=== PATIENT | female | born 1960 | race Caucasian/White ===

== ENCOUNTER 2016-09-25 15:08 | Emergency (ER) | payer OTHER ==
[~2016-09-25] VITALS: Ht 172.7 cm; Wt 80.0 kg
[~2016-09-25 15:08] MED LIST: ALPR0.5T99 PO; HYDR-3533 PO; MONT10TA2 PO; NAPR-576 PO; ONDA4 PO; SOMA250T PO; SPIRCAP INH; SYMB160A INH
[2016-09-25 15:10] VITALS: BP 112/65; PULSE 61; RESP 16; TEMP 98.1; O2SAT 99
[2016-09-25 19:39] VITALS: BP 119/58; PULSE 64; RESP 16; O2SAT 99
[2016-09-25] MEDS ORDERED: SODIUM CHLOR 0.9% 1000 ML INJ 1,000 ML IV SCH (19:39)
[2016-09-25 19:41] VITALS: O2SAT 99
[2016-09-25] MEDS ORDERED: metroNIDAZOLE 500 MG INJ 100 ML IV ONE (19:45)
[2016-09-25] MEDS ORDERED: MORPHINE SULFATE 4 MG/ML INJ IV PUSH ONE (19:45)
[2016-09-25] MEDS ORDERED: SODIUM CHLORIDE 0.9% FLUSH 5 ML FLUSH IVF PRN (19:45)
[2016-09-25] MEDS ORDERED: ONDANSETRON HCL 4 MG/2 ML VIAL IVP ONE (19:45)
[2016-09-25] MEDS ORDERED: CIPROFLOXACIN 400 MG PREMIX 200 ML IV ONE (19:45)
--- NOTE | 2016-09-25 19:54 | PD ---
HPI . Abdominal pain Chief Complaint: Abdominal Pain Time Seen by Provider: 19:37 Travel History International Travel<30 days: No Contact w/Intl Traveler<30days: No Traveled to known affect area: No History of Present Illness HPI Patient presents with lower abdominal pain which has been present for 5 days. She was started on Cipro and Flagyl 4 days ago for presumptive diverticulitis. She states that she has gotten worse rather than better. She reports very poor appetite, N/V/D. She states that she has a history of diverticulitis. She also has a history of previous pancreatitis. [id number]: Lower abdomen QUALITY: Cramping SEVERITY:4/10 constantly, 8/10 occasionally DURATION: 5 days TIMING: Continuous CONTEXT: History of diverticulitis and pancreatitis MODIFYING FACTORS: Unrelieved by Cipro and Flagyl 4 days ASSOCIATED SYMPTOMS: Poor appetite, N/V/D PFSH Past Medical History Asthma: Yes Autoimmune Disease: No Anxiety: Yes Heart Rhythm Problems: No Cardiac Catheterization: No Cardiovascular Problems: Yes High Cholesterol: No Chest Pain: Yes Congestive Heart Failure: No COPD: Yes Diabetes: No Diminished Hearing: No Diverticulitis: Yes (DIVERTICULOSIS) Endocrine: No Gastrointestinal Disorders: Yes Genitourinary: Yes Hepatitis: Yes (C) Heparin Induced Thrombocytopen: Yes Immune Disorder: No Kidney Stones: Yes Musculoskeletal: Yes Neurologic: Yes Psychiatric: No Reproductive: No Migraines: Yes Pancreatitis: Yes Renal Failure: No Sickle Cell Disease: No Thyroid Disease: No Influenza Vaccination: Yes ?: Not Menopausal: Yes : 5 Para: 2 Miscarriage: 1 : 2 Past Surgical History Abdominal Surgery: Yes Appendectomy: Yes Body Medical Devices: 2 nerve stimulator inserted in right lower back and right upper quad Section: Yes (x2) Cholecystectomy: Yes Coronary Artery Bypass Graft: No Gynecologic Surgery: Yes (csections) Oral Surgery: Yes (tonsilectomies) Tonsillectomy: Yes Social History Alcohol Use: No Tobacco Use: No (quit 20 yrs ago smoked 1 ppd) Substance Use: No (RECOVERED- alcohol and ) Allergies-Medications (Allergen,Severity, Reaction): Coded Allergies: Wheat (Verified Allergy, Severe, Shortness of Breath, 09/25/16) RESPIRATORY DISTRESS Beta Blockers (Verified Allergy, Mild, ASTHMA, 09/25/16) Compazine (Verified Allergy, Mild, HIVES, 09/25/16) Stadol (Verified Allergy, Mild, HIVES, 09/25/16) Reported Meds & Prescriptions Reported Meds & Active Scripts Active Reported Flagyl (Metronidazole) 250 Mg Tab 250 Mg PO TID Cipro (Ciprofloxacin HCl) 500 Mg Tab 500 Mg PO BID Imitrex (Sumatriptan Succinate) 25 Mg Tab 25 Mg PO ONCE PRN If a satisfactory response has not been obtained at 2 hours, a second dose may be administered Fioricet (Sthetirusg-Gpvcsxkpxikjt-Hmsbugub) 50-300-40 Mg Cap 1 Cap PO Q4H PRN Ventolin Hfa 18 GM Inh (Albuterol Sulfate) 90 Mcg/Act Aer 2 Puff INH Q4H PRN Review of Systems Except as stated in HPI: all other systems reviewed are Neg General / Constitutional: No: Fever, Chills Respiratory: No: Cough, Shortness of Breath Gastrointestinal: Positive: Nausea, Vomiting, Diarrhea, Abdominal Pain Genitourinary: No: Urgency, Frequency, Dysuria Physical Exam Narrative GENERAL: Awake and alert in no acute distress. SKIN: Warm and dry. HEAD: Atraumatic. Normocephalic. EYES: Pupils equal and round. ENT: No nasal bleeding or discharge. Mucous membranes pink and moist. NECK: Trachea midline. Neck is supple. CARDIOVASCULAR: Regular rate and rhythm. Heart sounds are normal. RESPIRATORY: No accessory muscle use. Lungs are clear with full air movement throughout. GASTROINTESTINAL: Abdomen soft. Mild diffuse lower abdominal tenderness. No guarding or rebound. Nondistended. MUSCULOSKELETAL: No obvious deformities. No edema. NEUROLOGICAL: Awake and alert. No obvious cranial nerve deficits. Motor grossly within normal limits. Normal speech. PSYCHIATRIC: Appropriate mood and affect; insight and judgment normal. Data Data Last Documented VS Vital Signs Date Time Temp Pulse Resp B/P Pulse Ox O2 Delivery O2 Flow Rate FiO2 09/25/16 20:43 50 15 99/53 09/25/16 19:41 99 Room Air 09/25/16 15:10 98.1 Orders Basic Metabolic Panel (Bmp) (09/25/16 19:39) Complete Blood Count With Diff (09/25/16 19:39) Lactic Acid (09/25/16 19:39) Urinalysis - C+S If Indicated (09/25/16 19:39) Ct Abd/Pel W Iv Contrast(Rout) (09/25/16 19:39) Iv Access Insert/Monitor (09/25/16 19:39) Ecg Monitoring (09/25/16 19:39) Oximetry (09/25/16 19:39) Morphine Inj (Morphine Inj) (09/25/16 19:45) Ondansetron Inj (Zofran Inj) (09/25/16 19:45) Ciprofloxacin 400 Mg Premix (Cipro 400 M (09/25/16 19:45) Metronidazole 500 Mg Inj (Flagyl 500 Mg (09/25/16 19:45) Sodium Chlor 0.9% 1000 Ml Inj (Ns 1000 M (09/25/16 19:39) Sodium Chloride 0.9% Flush (Ns Flush) (09/25/16 19:45) Hepatic Functional Panel (09/25/16 19:49) Lipase (09/25/16 19:49) Iohexol 350 Inj (Omnipaque 350 Inj) (09/25/16 20:20) Ceftriaxone Inj (Rocephin Inj) (09/25/16 21:00) Hydromorphone Pf Inj (Dilaudid Pf Inj) (09/25/16 21:00) Labs Laboratory Tests Test 09/25/16 19:54 White Blood Count 5.2 TH/MM3 Red Blood Count 4.40 MIL/MM3 Hemoglobin 14.1 GM/DL Hematocrit 40.4 % Mean Corpuscular Volume 91.8 FL Mean Corpuscular Hemoglobin 32.1 PG Mean Corpuscular Hemoglobin 34.9 % Concent Red Cell Distribution Width 12.3 % Platelet Count 219 TH/MM3 Mean Platelet Volume 8.3 FL Neutrophils (%) (Auto) 58.0 % Lymphocytes (%) (Auto) 31.7 % Monocytes (%) (Auto) 7.6 % Eosinophils (%) (Auto) 1.9 % Basophils (%) (Auto) 0.8 % Neutrophils # (Auto) 3.0 TH/MM3 Lymphocytes # (Auto) 1.7 TH/MM3 Monocytes # (Auto) 0.4 TH/MM3 Eosinophils # (Auto) 0.1 TH/MM3 Basophils # (Auto) 0.0 TH/MM3 CBC Comment DIFF FINAL Differential Comment Urine Color YELLOW Urine Turbidity CLEAR Urine pH 6.5 Urine Specific Wilder 1.010 Urine Protein NEG mg/dL Urine Glucose (UA) NEG mg/dL Urine Ketones NEG mg/dL Urine Occult Blood NEG Urine Nitrite NEG Urine Bilirubin NEG Urine Urobilinogen LESS THAN 2.0 MG/DL Urine Leukocyte Esterase LARGE Urine RBC LESS THAN 1 /hpf Urine WBC 6 /hpf Urine Squamous Epithelial 2 /hpf Cells Urine Mucus FEW /lpf Microscopic Urinalysis Comment CULT NOT INDICATED Sodium Level 140 MEQ/L Potassium Level 3.5 MEQ/L Chloride Level 103 MEQ/L Carbon Dioxide Level 30.6 MEQ/L Anion Gap 6 MEQ/L Blood Urea Nitrogen 14 MG/DL Creatinine 0.77 MG/DL Estimat Glomerular Filtration 77 ML/MIN Rate Random Glucose 204 MG/DL Lactic Acid Level 0.8 mmol/L Calcium Level 8.7 MG/DL Total Bilirubin 0.1 MG/DL Direct Bilirubin 0.1 MG/DL Indirect Bilirubin 0.0 MG/DL Aspartate Amino Transf 14 U/L (AST/SGOT) Alanine Aminotransferase 25 U/L (ALT/SGPT) Alkaline Phosphatase 82 U/L Total Protein 6.6 GM/DL Albumin 3.8 GM/DL Lipase 122 U/L [facility] Medical Decision Making Medical Screen Exam Complete: Yes Emergency Medical Condition: Yes Differential Diagnosis Differential diagnosis of abdominal pain includes but is not limited to gastritis, pancreatitis, hepatitis, gastroenteritis, gallbladder disease, constipation, urinary retention, UTI, peptic ulcer disease, diverticulitis or appendicitis Narrative Course Patient presents for evaluation of abdominal pain. She has a history of both colitis and pancreatitis. She has been on Cipro and Flagyl for 4 days. She is not improving. Last Impressions Abdomen/Pelvis CT 09/25/161938 Signed Impressions: Service Date/Time: Sunday, September 25, 2016 20:09 - CONCLUSION: 1. Scattered diverticulosis of the sigmoid colon. No inflammatory changes are seen at this time. 2. Status post cholecystectomy. 3. No acute pathology. Andrew Cm MD CBC & BMP Diagram 09/25/16 19:54 Her LFTs are normal. Lipase is normal. UA shows large leukocyte esterase with 6 white cells. The patient has been on Cipro for 4 days. The Cipro is probably not covering the UTI. I had ordered Cipro and Flagyl for presumed diverticulitis. The Cipro has been given. The Flagyl has not and has been discontinued. I have added Rocephin. Diagnosis Primary Impression: Abdominal pain Qualified Code: R10.30 - Lower abdominal pain Additional Impression: UTI (urinary tract infection) Qualified Code: N30.00 - Acute cystitis without hematuria Med/Other Pt SpecificInfo: Prescription(s) given Scripts Tramadol (Ultram)50 Mg Tab50 Mg PO Q4H PRN (PAIN) #12 TAB Ref 0 Prov:Tricia Heller MD 09/25/16 Cephalexin (Keflex)500 Mg Oku098 Mg PO Q8H #30 CAP Ref 0 Prov:Tricia Heller MD 09/25/16 Tricia Heller MD Sep 25, 2016 19:54
[2016-09-25 20:18] LABS: BASOPHIL % 0.8 % (0.0-2.0); EOSINOPHIL # 0.1 TH/MM3 (0-0.4); EOSINOPHIL % 1.9 % (0.0-4.0); HEMATOCRIT 40.4 % (35.0-46.0); HEMO FLAGS DIFF FINAL; LYMPH % 31.7 % (9.0-44.0); LYMPHOCYTE # 1.7 TH/MM3 (1.0-4.8); MEAN CELL VOLUME 91.8 FL (80.0-100.0); MEAN CORPUSCULAR HEMOGLOBIN 32.1 PG (27.0-34.0); MEAN CORPUSCULAR HGB CONC 34.9 % (32.0-36.0); MONO % 7.6 % (0.0-8.0); PLATELET COUNT 219 TH/MM3 (150-450); RED CELL DISTRIBUTION WIDTH 12.3 % (11.6-17.2); WHITE BLOOD COUNT 5.2 TH/MM3 (4.0-11.0)
[2016-09-25] MEDS ORDERED: IOHEXOL 350 MG/ML 10 ML VIAL (for RAD DIAG) IV ONE (20:20)
[2016-09-25 20:22] LABS: BLOOD, URINE NEG (NEG); COMMENT (UR) CULT NOT INDICATED; CULTURE IF INDICATED CULT NOT INDICATED; GLUCOSE,URINE NEG (NEG); KETONE, URINE NEG (NEG); MUCUS URINE FEW /lpf (OCC); NITRITE,URINE NEG (NEG); PH, URINE 6.5 (5.0-8.5); SQUAMOUS EPITHELIAL CELL URINE 2 /hpf (0-5); URINE COLOR YELLOW (YELLW/STRAW)
--- NOTE | 2016-09-25 20:29 | RADRPT ---
EXAM DATE/TIME: 09/25/2016 20:09 [facility] COMPARISON: No previous studies available for comparison. INDICATIONS : Abdomen pain. IV CONTRAST: 100 cc Omnipaque 350 (iohexol) IV ORAL CONTRAST: No oral contrast ingested. RADIATION DOSE: 5.1 CTDIvol (mGy) MEDICAL HISTORY : Cardiovascular disease. Hepatitis C. SURGICAL HISTORY : Cholecystectomy. Appendectomy.Spinal cord stimulator. ENCOUNTER: Initial ACUITY: 1 day PAIN SCALE: 5/10 LOCATION: Bilateral abdomen. TECHNIQUE: Volumetric scanning of the abdomen and pelvis was performed. Using automated exposure control and ad justment of the mA and/or kV according to patient size, radiation dose was kept as low as reasonably achievable to obtain optimal diagnostic quality images. FINDINGS: LOWER LUNGS: The visualized lower lungs are clear. LIVER: Homogeneous density without lesion. There is no dilation of the biliary tree. No gallbladder, surgi kya removed. SPLEEN: Normal size without lesion. PANCREAS: Within normal limits. KIDNEYS: Normal in size and shape. There is no mass, stone or hydronephrosis. ADRENAL GLANDS: Within normal limits. VASCULAR: There is no aortic aneurysm. BOWEL/MESENTERY: The stomach, small bowel, and colon demonstrate no acute abnormality. There is no free intraperitone al air or fluid. There is some scattered diverticulosis of the sigmoid colon. No inflammatory changes are demonstrated. There is stool throughout the colon. ABDOMINAL WALL: Within normal limits. RETROPERITONEUM: There is no lymphadenopathy. BLADDER: No wall thickening or mass. REPRODUCTIVE: Within normal limits. INGUINAL: There is no lymphadenopathy or hernia. MUSCULOSKELETAL: Within normal limits for patient age. Spinal stimulator devices are seen in the anterior right abdomi nal wall and posteriorly right flank area. CONCLUSION: 1. Scattered diverticulosis of the sigmoid colon. No inflammatory changes are seen at this time. 2. Status post cholecystectomy. 3. No acute pathology. Andrew Cm MD on September 25, 2016 at 20:23 Board Certified Radiologist. This report was verified electronically.
[2016-09-25 20:32] LABS: BICARBONATE 30.6 MEQ/L (21.0-32.0); POTASSIUM 3.5 MEQ/L (3.5-5.1)
[2016-09-25] MEDS ORDERED: CIPR-9 PO (20:42)
[2016-09-25] MEDS ORDERED: BUTA1CAP PO (20:42)
[2016-09-25] MEDS ORDERED: IMIT25TA PO (20:42)
[2016-09-25] MEDS ORDERED: VENTAER INH (20:42)
[2016-09-25] MEDS ORDERED: METR250 PO (20:42)
[2016-09-25 20:43] VITALS: BP 99/53; PULSE 50; RESP 15
[2016-09-25] MEDS ORDERED: cefTRIAXone INJ 1,000 MG in SODIUM CHLORIDE 0.9% INJ 100 ML IV ONE (21:00)
[2016-09-25] MEDS ORDERED: HYDROmorphone HCL PF 2 MG/ML VIAL IV PUSH ONE (21:00)
[2016-09-25 21:01] LABS: TOTAL BILIRUBIN ADULT 0.1 MG/DL (0.2-1.0)
[2016-09-25] MEDS ORDERED: ULTR50TA5 PO (21:18)
[2016-09-25] MEDS ORDERED: CEPH-460 PO (21:18)
== END 2016-09-25 22:37 | disposition home or self-care (01) ==
LOC: NEPA 15:08
DX: R10.30 Lower abdominal pain, unspecified (principal); N39.0 Urinary tract infection, site not specified; R11.2 Nausea with vomiting, unspecified; R19.7 Diarrhea, unspecified; J44.9 Chronic obstructive pulmonary disease, unspecified; Z87.442 Personal history of urinary calculi
CPT/HCPCS: 74177; 80048; 80076; 81001; 83605; 83690; 85025; 96365; 96375; 99284; J0696; J0744; J2405; J7030; Q9967

== ENCOUNTER → 2017-09-17 | Outpatient (CLI) | payer OTHER ==
[~2017-09-17] MED LIST changes: -ALPR0.5T99 PO; +BUTA1CAP PO; -HYDR-3533 PO; +IMIT25TA PO; -NAPR-576 PO; +NYST1000 SWISH-SWAL; -ONDA4 PO; -SOMA250T PO; -SPIRCAP INH; -SYMB160A INH; +VENTAER INH
== END ==
LOC: HRSP 07:39
PROVIDERS: ATTEND Internal Medicine Pulmonary Disease
DX: R05 Cough (principal); R06.2 Wheezing
CPT/HCPCS: 36600; 82805; 94060; 94618; 94726; 94729

== ENCOUNTER → 2017-12-26 | Day surgery (SDC) | payer OTHER ==
[~2017-12-26] MED LIST changes: +BUPIVACAINE HCL PF 0.5% 30 ML VIAL ONE; +LACTATED RINGER'S 1000 ML INJ 1,000 ML ONE; +MIDAZOLAM HCL 2 MG/2 ML VIAL ONE; +PROPOFOL 200 MG/20 ML AMP IV ONE; +ceFAZolin 2 GM PREMIX 50 ML ONE
--- NOTE | 2017-12-26 11:43 | RADRPT ---
EXAM DATE: 12/26/2017 11:07 AM EDT AGE/SEX: 57 years / Female INDICATIONS: Left foot cheilectomy and chevron. CLINICAL DATA: This is the patient's initial encounter. Patient reports that signs and symptoms have been present for 1 day and indicates a pain score of Nonresponsive. MEDICAL/SURGICAL HISTORY: Non-responsive. Non-responsive. COMPARISON: No prior exams available for comparison. FINDINGS: 3 images from the OR have been submitted. There is a screw seen through the distal aspect of the fift h metatarsal. The hardware appears well placed. CONCLUSION: Surgical screw seen through the distal aspect of the fifth metatarsal. Electronically signed by: Rikki Murrell MD 12/26/2017 11:42 AM EDT
--- NOTE | 2017-12-26 12:10 | MP ---
cc: Rukhsana Jewell DPM DATE OF OPERATION: 12/26/2017 SURGEON: Rukhsana Jewell DPM ASSESSMENT COUNSELOR: None. PREOPERATIVE DIAGNOSES: 1. Left foot first metatarsal bone spur. 2. Left foot tailor bunion. PROCEDURE PERFORMED: 1. Left foot cheilectomy. 2. Left foot tailor's bunionectomy. PATHOLOGY SENT: None. ANESTHESIA: General. HEMOSTASIS: Pneumatic ankle tourniquet at 250 mmHg. ESTIMATED BLOOD LOSS: Less than 5 mL. MATERIALS USED: Included 2.3 Arthrex screw, 0 Monocryl, 3-0 Prolene. INJECTABLES: 10 mL of 0.5% Marcaine plain. ESTIMATED BLOOD LOSS: Less than 5 mL. COMPLICATIONS: None. INDICATIONS: A 57-year-old female patient with medial and lateral bunion pain. The leg was wrapped with minimal to no deformity or increase of the first metatarsal angle where the tailor's bunion has a sizable increase in the fourth intermetatarsal space with the medial deviation of the fifth digit. A decision was made to do cheilectomy of the first metatarsal and a tailor's Chevron bunionectomy of the fifth metatarsal. Consent was signed. The procedure were explained. No guarantees were given. PROCEDURE: Under mild sedation, the patient was brought into the operating room, placed on the operating table in supine position. Following IV sedation, a pneumatic ankle tourniquet was placed around the left ankle. The foot was then scrubbed, prepped and draped in the usual aseptic manner. Attention was directed to the dorsal aspect of the first metatarsal head. A linear longitudinal incision was created through the skin and subcutaneous tissue with care being taken to identify and retract any vital neurovascular structures. The capsule was cut and reflected medially in order to gain access to the medial aspect of the first metatarsal head. A saw was used to remove the medial eminence without affecting the articular cartilaginous surface. It was removed from the field in toto. The area around the cut was removed using an oscillating saw. The area was flushed with copious amounts of sterile saline. The deep and subcutaneous tissues were closed using 2-0 Monocryl. Skin was closed using 2-0 Prolene. There was a noted absence in the hypertrophic medial eminence after skin closure. Attention was then directed to the dorsal aspect of the fifth metatarsophalangeal joint. A linear longitudinal incision was created through skin and subcutaneous tissue taking care to identify and retract any vital neurovascular structures. The incision was deepened to the level of bone. An oscillating saw was used to remove the hypertrophic lateral eminence of the fifth metatarsal head. A Chevron bunionectomy was then created through this lateral aspect of the metatarsal head. Capital fragment was shifted medially and secured in place with a K-wire before a 2.3 screw was inserted. There was excellent compression across the osteotomy site and excellent alignment was noted under fluoroscopy. The remaining lateral eminence was removed with the oscillating saw. A capsulorrhaphy was then performed in order to better align the digit. Hardware placement and deformity reduction was complete under fluoroscopy. The area flushed with copious amounts of saline. 3-0 Monocryl, 3-0 Prolene was used to close. 0.5% Marcaine plain was injected around the surgical site. Pneumatic ankle tourniquet was released and a prompt hyperemic response was noted to all digits of the left foot. The patient was placed in sterile bandage, Adaptic, 4 x 4s, and a well-padded posterior splint. She will recover in the PACU for a period of time before being discharged home with written and oral postoperative instructions. CARYL Sanchze/DL , 11:26 AM , 12:10 PM
== END | disposition home or self-care (01) ==
LOC: ESDC 08:22
PROVIDERS: ATTEND Podiatrist Foot & Ankle Surgery
DX: M25.775 Osteophyte, left foot (principal); M21.622 Bunionette of left foot
CPT/HCPCS: 01480; 28289; 28296; 73620; 76000; C1713; J0690; J2250; J3010; J7120